=== PATIENT | female | born 1970 | race Caucasian/White ===

== ENCOUNTER → 2017-06-22 | Outpatient (REF) | payer OTHER ==
[2017-06-24 14:14] LABS: HPV HYBRID CAPTURE II Negative (Negative)
== END ==
LOC: M SFHCWAGY 15:17
DX: Z12.4 Encounter for screening for malignant neoplasm of cervix (principal)

== ENCOUNTER → 2017-06-22 | Outpatient (CLI) | payer OTHER | LOC: M WHC 15:12 | DX: Z12.31 Encounter for screening mammogram for malignant neoplasm of breast (principal) | CPT/HCPCS: 77067 ==

== ENCOUNTER → 2018-03-27 | Outpatient (REF) | payer OTHER ==
[2018-03-27 12:48] LABS: INFLUENZA A AMPLIFICATION POSITIVE (NEGATIVE); INFLUENZA B AMPLIFICATION NEGATIVE (NEGATIVE)
== END ==
LOC: M LAB REF 12:06
PROVIDERS: ATTEND Physician Assistant Medical
DX: J09.X2 Influenza due to identified novel influenza A virus with other respiratory manifestations (principal)

== ENCOUNTER → 2018-09-19 | Outpatient (CLI) | payer OTHER ==
--- NOTE | 2018-09-19 16:43 | REP ---
Right breast diagnostic mammogram and right breast ultrasound: Studies are correlated with the recent screening mammogram including tomosynthesis dated 09/14/2018. Diagnostic right breast spot compression mammograms in the upper outer quadrant demonstrate two of the four nodules identified on the screening tomosynthesis images. The other two nodules are not visible on the spot compression mammograms. Ultrasound of the right breast upper outer quadrant: Two nodules are identified by ultrasound. At 11 o'clock, 8.6 cm from the nipple there is a 0.6 x 0.4 x 0.4 cm solid nodule with a hilus and color Doppler vascular flow, compatible with an intramammary lymph node. At the 9 o'clock location approximate 8.9 cm from the nipple is a 0.6 x 0.3 x 0.6 cm ovoid solid nodule with an echogenic hilus and color Doppler vascular flow, compatible with intramammary lymph node. The other change is identified on tomosynthesis cannot be identified on spot compression mammograms or by ultrasound. Therefore, breast MRI is recommended for further evaluation of these nodules. Impression: BIRADS category zero, incomplete, additional imaging evaluation is needed. Breast MRI is recommended as discussed above. Electronically Signed by Jalen Cid MD 09/19/2018 04:35 P
--- NOTE | 2018-09-19 16:47 | REP ---
Right breast ultrasound: Please see the diagnostic mammogram report for the ultrasound results. Electronically Signed by Jalen Cid MD 09/19/2018 04:37 P
== END ==
LOC: M RAD 14:00
PROVIDERS: ATTEND Nurse Practitioner Women's Health
DX: R92.2 Inconclusive mammogram (principal)

== ENCOUNTER → 2019-09-18 | Outpatient (REF) | payer OTHER | LOC: M SFHCWAGY 19:46 | PROVIDERS: ATTEND Nurse Practitioner Women's Health | DX: Z12.4 Encounter for screening for malignant neoplasm of cervix (principal) | CPT/HCPCS: 87624; G0123 ==

== ENCOUNTER → 2019-09-18 | Outpatient (CLI) | payer OTHER ==
--- NOTE | 2019-10-12 08:07 | REPMRS ---
Patient History The patient states she had a clinical breast exam in August 2019.Family history of prostate cancer at age 50 or over in paternal grandfather. Digital Woman Screen Mammo: October 06, 2019 - Exam #: [id number] Bilateral CC and MLO view(s) were taken. Technologist: Fouzia Kaminski, Technologist Prior study comparison: September 19, 2018, right breast digital mammo diagnostic unilateral, performed at [facility]. September 14, 2018, bilateral digital woman screen mammo performed at [facility]. June 22, 2017, digital woman screen mammo performed at [facility]. FINDINGS: There are scattered fibroglandular densities. The Volpara volumetric breast density category is:B. There has been no change in the appearance of the mammogram from the prior studies. There is a mild amount of scattered fibroglandular density which is fairly symmetric. There is no interval development of dominant mass, architectural distortion, or grouped microcalcification suggestive of malignancy. 3-D tomosynthesis shows no additional findings. Assessment: BI-RADS/ACR category 1 mammogram. Negative Mammogram. Recommendation Routine screening mammogram of both breasts in 1 year (for women over age 40). This patient's Lifetime Breast Cancer Risk is estimated at 12.0 %. This mammogram was interpreted with the aid of an FDA-approved computer-aided dectection system. Electronically Signed By: Ed Peralta MD 10/12/19 0802
== END ==
LOC: M WHC 14:03
PROVIDERS: ATTEND Nurse Practitioner Women's Health
DX: Z12.31 Encounter for screening mammogram for malignant neoplasm of breast (principal)

== ENCOUNTER → 2020-09-17 | Outpatient (REF) | payer OTHER | LOC: M SFHCWAGY 08:26 | PROVIDERS: ATTEND Nurse Practitioner Women's Health | DX: Z12.4 Encounter for screening for malignant neoplasm of cervix (principal); Z01.419 Encounter for gynecological examination (general) (routine) without abnormal findings; Z77.9 Other contact with and (suspected) exposures hazardous to health ==

== ENCOUNTER → 2020-09-17 | Outpatient (CLI) | payer OTHER ==
--- NOTE | 2020-09-18 09:10 | REPMRS ---
Patient History The patient states she had a clinical breast exam in 08/2020. Family history of prostate cancer at age 50 or over in paternal grandfather. No Hormone Replacement Therapy Patient states no breast complaints today. Patient has signed MRS History Sheet. Digital Woman Screen Mammo: September 17, 2020 - Exam #: [id number] Bilateral CC and MLO view(s) were taken. Technologist: Renea Corcoran, Technologist Prior study comparison: September 18, 2019, bilateral digital woman screen mammo performed at [facility]. September 19, 2018, right breast digital mammo diagnostic unilateral, performed at [facility]. FINDINGS: The breast tissue is heterogeneously dense. This may lower the sensitivity of mammography. Screening. Digital screening (2D) mammography was performed bilaterally in the CC and MLO projections. Additionally, breast tomosynthesis (3D mammography) was performed bilaterally in the CC and MLO projections. Todays exam was compared to the prior exam/exams. By history, the patient has no complaints of a palpable breast abnormality or other significant breast complaints. The breasts are unchanged in size and shape.Once again, dense heterogenous fibroglandular elements are seen bilaterally in a stable appearing pattern but to such a degree that the sensitivity of the mammogram in detecting cancer is decreased. There are no conchita-soft tissue densities or spiculated masses. There is no internal architectural distortion. There are no suspicious conchita-calcific clusters. Skin thickening or nipple retraction is not present. IMPRESSION: BI-RADS Category 2- Benign Findings. There is no evidence of malignant alteration of the breasts. Followup examination recommended in one year. The Volpara volumetric breast density category is C, the breasts are heterogenously dense which may obscure small masses. This mammogram was read with the assistance of [employer],an FDA approved computer aided detection system for mammography. The lifetime Tyrer-Cuzick score is 11.8 % Due to the density of the breasts or Tyrer Cuzick score of 20% or greater, MRI/whole breast screening ultrasound is warranted. Negative x-ray reports should not delay surgical consultation if a dominant or clinically suspicious mass is present. Not all breast cancers can be identified by mammography. Therefore, we recommend that you continue to perform regular breast self-examination and physical examination and then promptly contact your physician of any concerns or changes. Adenosis and dense breasts may obscure an underlying neoplasm. Assessment: BI-RADS/ACR category 2 mammogram. Benign Findings. Recommendation Routine screening mammogram of both breasts in 1 year. Electronically Signed By: Girish Carrizales DO 09/18/20 0910
== END ==
LOC: M WHC 11:15
PROVIDERS: ATTEND Nurse Practitioner Women's Health
DX: Z12.31 Encounter for screening mammogram for malignant neoplasm of breast (principal)

== ENCOUNTER → 2021-01-01 | Outpatient (REF) | payer OTHER | LOC: M LAB REF 21:14 | PROVIDERS: ATTEND Physician Assistant | DX: R05.9 Cough, unspecified (principal); R50.9 Fever, unspecified ==

== ENCOUNTER → 2021-05-17 | Outpatient (CLI) | payer OTHER ==
[~2021-05-17] MED LIST: BUPR150T12; BUSP10TA; NIFE15CA PO; PRAV20TA2; ZOLO100T PO
== END ==
LOC: M LABSMTC 09:44
PROVIDERS: ATTEND Anesthesiology
DX: Z01.812 Encounter for preprocedural laboratory examination (principal); Z20.822 Contact with and (suspected) exposure to COVID-19

== ENCOUNTER 2021-05-22 08:50 | Day surgery (SDC) | payer OTHER ==
[~2021-05-22] VITALS: Ht 170.2 cm; Wt 80.7 kg
[~2021-05-22 08:50] MED LIST changes: +LIDOCAINE 2% 100MG/5ML SDV (FOR ANES.) As Ordered ONE; +NS 1,000 ML IV ONE; +propofoL 200 MG/20 ML VIAL As Ordered ONE
[2021-05-22 10:35] VITALS: BP 112/72
== END 2021-05-22 10:47 | disposition home or self-care (01) ==
LOC: M OPP 08:50
PROVIDERS: ATTEND Surgery
DX: K57.30 Diverticulosis of large intestine without perforation or abscess without bleeding (principal); K64.2 Third degree hemorrhoids; K62.5 Hemorrhage of anus and rectum; K59.00 Constipation, unspecified; D50.9 Iron deficiency anemia, unspecified; G47.30 Sleep apnea, unspecified; Z79.899 Other long term (current) drug therapy

== ENCOUNTER → 2021-09-29 | Outpatient (REF) | payer OTHER ==
[~2021-09-29] MED LIST changes: -LIDOCAINE 2% 100MG/5ML SDV (FOR ANES.) As Ordered ONE; -NS 1,000 ML IV ONE; -propofoL 200 MG/20 ML VIAL As Ordered ONE
[2021-09-29 18:13] LABS: FOLATE 13.5 NG/ML
== END ==
LOC: M LAB REF 16:13
PROVIDERS: ATTEND Registered Nurse
DX: D50.9 Iron deficiency anemia, unspecified (principal); E78.00 Pure hypercholesterolemia, unspecified

== ENCOUNTER → 2022-02-17 | Outpatient (CLI) | payer OTHER | LOC: M WHC 10:40 | PROVIDERS: ATTEND Advanced Practice Midwife | DX: Z12.31 Encounter for screening mammogram for malignant neoplasm of breast (principal) ==

== ENCOUNTER → 2022-02-19 | Outpatient (CLI) | payer OTHER | LOC: M SLEEP 20:00 | PROVIDERS: ATTEND Nurse Practitioner Family | DX: R06.83 Snoring (principal) ==

== ENCOUNTER → 2022-11-11 | Outpatient (CLI) | payer OTHER | LOC: M WUC 15:35 | PROVIDERS: ATTEND Physician Assistant Medical | DX: M54.9 Dorsalgia, unspecified (principal) ==

== ENCOUNTER → 2023-03-09 | Outpatient (CLI) | payer OTHER | LOC: M WHC 10:53 | PROVIDERS: ATTEND Advanced Practice Midwife | DX: Z12.31 Encounter for screening mammogram for malignant neoplasm of breast (principal); R92.323 Mammographic fibroglandular density, bilateral breasts ==

== ENCOUNTER → 2023-03-09 | Outpatient (CLI) | payer OTHER ==
[2023-03-09 16:34] LABS: BILIRUBIN,DIRECT 0.1 MG/DL (<0.4); BILIRUBIN,TOTAL 0.4 MG/DL (0.3-1.2)
== END ==
LOC: M PLALAB 12:04
PROVIDERS: ATTEND Nurse Practitioner Family
DX: N95.1 Menopausal and female climacteric states (principal); N95.2 Postmenopausal atrophic vaginitis; Z12.4 Encounter for screening for malignant neoplasm of cervix
CPT/HCPCS: 36415; 82247; 82248; 84450; 84460; 87624; G0123

== ENCOUNTER → 2023-12-16 | Outpatient (REF) | payer OTHER ==
[2023-12-16 18:52] LABS: FERRITIN 68.8 NG/ML (7.3-270.7)
== END ==
LOC: M LAB REF 16:46
PROVIDERS: ATTEND Physician Assistant Medical
DX: D50.9 Iron deficiency anemia, unspecified (principal)

== ENCOUNTER → 2024-01-31 | Outpatient (CLI) | payer OTHER | LOC: M RAD 15:34 | PROVIDERS: ATTEND Physician Assistant Medical | DX: M46.1 Sacroiliitis, not elsewhere classified (principal) ==

== ENCOUNTER → 2024-03-13 | Outpatient (CLI) | payer OTHER | LOC: M WHC 11:24 | PROVIDERS: ATTEND Nurse Practitioner Family | DX: Z12.31 Encounter for screening mammogram for malignant neoplasm of breast (principal) ==

== ENCOUNTER → 2024-03-13 | Outpatient (REF) | payer OTHER | LOC: M SFHCWAGY 16:51 | PROVIDERS: ATTEND Nurse Practitioner Family | DX: N95.2 Postmenopausal atrophic vaginitis (principal) ==

== ENCOUNTER → 2024-04-20 | Outpatient (CLI) | payer OTHER | LOC: M WUC 13:02 | PROVIDERS: ATTEND Physician Assistant Medical | DX: M17.11 Unilateral primary osteoarthritis, right knee (principal) ==